=== PATIENT | male | born 1970 | race Caucasian/White ===

== ENCOUNTER 2016-12-20 15:02 | Outpatient (CLI) | payer OTHER ==
[2016-12-20 18:16] LABS: BASOPHILS # (AUTO) 0.1 10^3/uL (0.0-0.1); BASOPHILS % (AUTO) 0.9 %; EOSINOPHILS # (AUTO) 0.2 10^3/uL (0.0-0.7); HCT - HEMATOCRIT 49.4 % (42.0-52.0); HGB - HEMOGLOBIN 17.3 g/dL (14.0-18.0); LYMPHOCYTES % (AUTO) 23.8 %; MEAN CORPUSCULAR HEMOGLOBIN 30.8 pg (27.0-31.0); MEAN CORPUSCULAR HGB CONC 35.1 g/dL (32.0-36.0); MEAN CORPUSCULAR VOLUME 87.7 fL (80.0-94.0); MEAN PLATELET VOLUME 9.2 fL (7.4-11.4); MONOCYTES # (AUTO) 0.4 10^3/uL (0.0-1.0); MONOCYTES % (AUTO) 4.7 %; NEUTROPHILS # (AUTO) 5.7 10^3/uL (1.5-6.6); NEUTROPHILS % (AUTO) 68.6 %; RED BLOOD COUNT 5.63 10^6/uL (4.70-6.10); RED CELL DISTRIBUTION WIDTH 12.9 % (12.0-15.0); UNCORRECTED WHITE BLOOD COUNT 8.3 x10^3/uL; WHITE BLOOD COUNT 8.3 x10^3/uL (4.8-10.8)
[2016-12-20 19:18] LABS: ALBUMIN/GLOBULIN RATIO 2.1 (1.0-2.2); BILIRUBIN,TOTAL 0.7 mg/dL (0.2-1.0); CALCIUM 9.6 mg/dL (8.5-10.3); CREATININE 0.9 mg/dL (0.6-1.2); POTASSIUM 3.6 mmol/L (3.5-5.0); TOTAL PROTEIN 7.1 g/dL (6.7-8.2)
== END 2016-12-20 15:03 | disposition home or self-care (01) ==
LOC: LAB.F 15:02
PROVIDERS: ATTEND Internal Medicine
DX: F41.1 Generalized anxiety disorder (principal)
CPT/HCPCS: 36415; 80053; 82306; 85025

== ENCOUNTER 2017-11-30 08:11 | Outpatient (CLI) | payer OTHER ==
[2017-11-30 12:06] LABS: BASOPHILS # (AUTO) 0.1 10^3/uL (0.0-0.1); BASOPHILS % (AUTO) 1.1 %; EOSINOPHILS # (AUTO) 0.2 10^3/uL (0.0-0.7); EOSINOPHILS % (AUTO) 2.3 %; HGB - HEMOGLOBIN 17.6 g/dL (14.0-18.0); LYMPHOCYTES # (AUTO) 1.9 10^3/uL (1.5-3.5); LYMPHOCYTES % (AUTO) 24.8 %; MEAN CORPUSCULAR HEMOGLOBIN 30.5 pg (27.0-31.0); MEAN CORPUSCULAR HGB CONC 34.1 g/dL (32.0-36.0); MEAN CORPUSCULAR VOLUME 89.4 fL (80.0-94.0); MEAN PLATELET VOLUME 8.9 fL (7.4-11.4); MONOCYTES # (AUTO) 0.5 10^3/uL (0.0-1.0); MONOCYTES % (AUTO) 6.4 %; NEUTROPHILS # (AUTO) 4.9 10^3/uL (1.5-6.6); NEUTROPHILS % (AUTO) 65.4 %; PLT - PLATELET COUNT 222 10^3/uL (130-450); RED BLOOD COUNT 5.78 10^6/uL (4.70-6.10); RED CELL DISTRIBUTION WIDTH 13.2 % (12.0-15.0); WHITE BLOOD COUNT 7.5 x10^3/uL (4.8-10.8)
[2017-11-30 12:17] LABS: ALBUMIN 4.5 g/dL (3.2-5.5); ALBUMIN/GLOBULIN RATIO 1.7 (1.0-2.2); CALCIUM 9.3 mg/dL (8.5-10.3); CREATININE 0.8 mg/dL (0.6-1.2); TOTAL PROTEIN 7.1 g/dL (6.7-8.2)
== END 2017-11-30 08:12 | disposition home or self-care (01) ==
LOC: LAB.F 08:11
PROVIDERS: ATTEND Physician Assistant Medical
DX: I10 Essential (primary) hypertension (principal); Z79.899 Other long term (current) drug therapy; E55.9 Vitamin D deficiency, unspecified
CPT/HCPCS: 36415; 80053; 82306; 85025

== ENCOUNTER 2019-01-24 08:13 | Outpatient (CLI) | payer OTHER ==
[2019-01-24 10:10] LABS: BASOPHILS # (AUTO) 0.1 10^3/uL (0.0-0.1); EOSINOPHILS # (AUTO) 0.1 10^3/uL (0.0-0.7); EOSINOPHILS % (AUTO) 2.2 %; HGB - HEMOGLOBIN 17.1 g/dL (14.0-18.0); LYMPHOCYTES # (AUTO) 1.1 10^3/uL (1.5-3.5); LYMPHOCYTES % (AUTO) 22.5 %; MEAN CORPUSCULAR HEMOGLOBIN 30.6 pg (27.0-31.0); MEAN CORPUSCULAR HGB CONC 34.1 g/dL (32.0-36.0); MEAN CORPUSCULAR VOLUME 89.8 fL (80.0-94.0); MEAN PLATELET VOLUME 10.1 fL (7.4-11.4); MONOCYTES # (AUTO) 0.3 10^3/uL (0.0-1.0); MONOCYTES % (AUTO) 6.8 %; NEUTROPHILS # (AUTO) 3.4 10^3/uL (1.5-6.6); NEUTROPHILS % (AUTO) 67.3 %; PLT - PLATELET COUNT 231 10^3/uL (130-450); RED BLOOD COUNT 5.59 10^6/uL (4.70-6.10); RED CELL DISTRIBUTION WIDTH 12.4 % (12.0-15.0)
[2019-01-24 10:20] LABS: ALBUMIN 4.5 g/dL (3.2-5.5); ALBUMIN/GLOBULIN RATIO 1.8 (1.0-2.2); BILIRUBIN,TOTAL 0.9 mg/dL (0.2-1.0); CALCIUM 9.2 mg/dL (8.5-10.3); CREATININE 0.8 mg/dL (0.6-1.2)
== END 2019-01-24 08:14 | disposition home or self-care (01) ==
LOC: LAB.S 08:13
PROVIDERS: ATTEND Physician Assistant Medical
DX: I10 Essential (primary) hypertension (principal); Z51.81 Encounter for therapeutic drug level monitoring
CPT/HCPCS: 36415; 80053; 85025

== ENCOUNTER 2019-06-04 09:58 | Emergency (ER) | payer OTHER ==
[2019-06-04] MEDS ORDERED: ONDANSETRON ODT 4 MG TABLET TL STA (10:14)
[2019-06-04] MEDS ORDERED: MECLIZINE 12.5 MG TABLET PO STA (10:14)
--- NOTE | 2019-06-04 11:13 | ED Physician Documentation ---
History of Present Illness - Stated complaint Stated Complaint: DIZZINESS - Chief complaint Chief Complaint: Neuro - History obtained from History obtained from: Patient - History of Present Illness Timing: Today Pain level max: 0 Pain level now: 0 - Additonal information Additional information: 48-year-old male states that this morning he began to feel like the room was spinning around him. This has caused nausea. No focal neurological deficits. No trauma. No numbness or tingling. This is not happened before. No recent illnesses. Worse with movement and better with rest. No syncope or near syncope. No chest pain. Review of Systems Constitutional: denies: Fever, Chills Nose: denies: Rhinorrhea / runny nose, Congestion Throat: denies: Sore throat Cardiac: denies: Chest pain / pressure Respiratory: denies: Cough GI: denies: Nausea, Vomiting, Diarrhea Skin: denies: Rash Musculoskeletal: denies: Neck pain, Back pain Neurologic: denies: Headache PD PAST MEDICAL HISTORY - Past Medical History Past Medical History: Yes Psych: Anxiety - Past Surgical History Past Surgical History: No - Present Medications Home Medications: Ambulatory Orders Medication Instructions Recorded Confirmed Anti-Anxiety DAILY PRN 06/04/19 Eszopiclone [Lunesta] 1 mg PO QPM 06/04/19 06/04/19 Meclizine HCl 25 mg PO Q6H PRN #10 tablet 06/04/19 Ondansetron Odt [Zofran] 4 mg TL Q6H PRN #10 tablet 06/04/19 clonazePAM [Clonazepam] 0.5 mg PO QPM 06/04/19 06/04/19 - Allergies Allergies/Adverse Reactions: Allergies Allergy/AdvReac Type Severity Reaction Status Date / Time No Known Drug Allergies Allergy Verified 06/04/19 10:05 - Social History Does the pt smoke?: No Smoking Status: Never smoker Does the pt drink ETOH?: Yes Does the pt have substance abuse?: No - Immunizations Immunizations are current?: Yes PD ED PE NORMAL - Vitals Vital signs reviewed: Yes - General General: Alert and oriented X 3, No acute distress, Well developed/nourished - HEENT HEENT: Atraumatic, PERRL, EOMI, Ears normal, Moist mucous membranes, Pharynx benign, Other (Positive Hallpike to the left. Nystagmus to the left) - Neck Neck: Supple, no meningeal sign - Cardiac Cardiac: RRR, Strong equal pulses - Respiratory Respiratory: No respiratory distress, Clear bilaterally - Abdomen Abdomen: Soft, Non tender, Non distended - Derm Derm: Warm and dry, No rash - Neuro Neuro: Alert and oriented X 3, oxidized finish plater 2-12 intact, No motor deficit, No sensory deficit, Normal speech, Other (Normal gait. No pronator drift.) - Psych Psych: Normal mood, Normal affect Results - Vitals Vitals: Vital Signs - 24 hr 06/04/19 06/04/19 10:06 11:17 Temperature 36.3 C L Heart Rate 80 61 Respiratory 20 18 Rate Blood Pressure 144/95 H 129/89 H O2 Saturation 95 95 Oxygen O2 Source Room air - EKG (time done) 1008 Rate: Rate (enter#) (74) Rhythm: NSR [place]: Normal Intervals: Normal [place] QRS: Normal, LVH Ischemia: Normal ST segments PD MEDICAL DECISION MAKING - ED course Complexity details: considered differential, d/w patient ED course: Patient presents to the emergency department what appears to be BPPV. Put through the half somersault maneuver and symptoms resolved., Nontoxic. Afebrile. No focal neurological deficits. We will continue supportive care and have him follow-up with his doctor for further care. Patient counseled regarding signs and symptoms for which I believe and urgent re-evaluation would be necessary. Patient with good understanding of and agreement to plan and is comfortable going home at this time This document was made in part using voice recognition software. While efforts are made to proofread this document, sound alike and grammatical errors may occur. No evidence of stroke, tumor, aneurysm. Departure - Departure Disposition: Home, Self Care Clinical Impression: Vertigo Condition: Good Instructions: ED BPV Vertigo Follow-Up: Justine Jiménez PA-C [Primary Care Provider] - As Needed Prescriptions: Meclizine HCl 25 mg PO Q6H PRN #10 tablet PRN Reason: Vertigo Ondansetron Odt [Zofran] 4 mg TL Q6H PRN #10 tablet PRN Reason: Nausea / Vomiting Comments: You can use the medications as needed for vertigo. You can also try the half somersault maneuver or Iman maneuver at home. You can watch videos on YouTube about this. Discharge Date/Time: 06/04/19 11:23
[2019-06-04 11:17] VITALS: BP 129/89
== END 2019-06-04 11:23 | disposition home or self-care (01) ==
LOC: ED 09:58
DX: R42 Dizziness and giddiness (principal)
CPT/HCPCS: 93005; 99283; 99284; A9270; Q0162

== ENCOUNTER 2019-09-21 13:19 | Outpatient (CLI) | payer OTHER ==
[2019-09-21 17:51] LABS: BASOPHILS # (AUTO) 0.1 10^3/uL (0.0-0.1); BASOPHILS % (AUTO) 1.1 %; EOSINOPHILS # (AUTO) 0.2 10^3/uL (0.0-0.7); EOSINOPHILS % (AUTO) 2.3 %; HGB - HEMOGLOBIN 16.8 g/dL (14.0-18.0); LYMPHOCYTES # (AUTO) 2.3 10^3/uL (1.5-3.5); LYMPHOCYTES % (AUTO) 30.8 %; MEAN CORPUSCULAR HEMOGLOBIN 29.9 pg (27.0-31.0); MEAN CORPUSCULAR HGB CONC 33.9 g/dL (32.0-36.0); MEAN CORPUSCULAR VOLUME 88.4 fL (80.0-94.0); MEAN PLATELET VOLUME 10.7 fL (7.4-11.4); MONOCYTES # (AUTO) 0.6 10^3/uL (0.0-1.0); MONOCYTES % (AUTO) 7.6 %; NEUTROPHILS # (AUTO) 4.4 10^3/uL (1.5-6.6); NEUTROPHILS % (AUTO) 57.9 %; PLT - PLATELET COUNT 222 10^3/uL (130-450); RED BLOOD COUNT 5.61 10^6/uL (4.70-6.10); RED CELL DISTRIBUTION WIDTH 12.8 % (12.0-15.0); WHITE BLOOD COUNT 7.5 x10^3/uL (4.8-10.8)
[2019-09-21 18:14] LABS: ALBUMIN 4.4 g/dL (3.2-5.5); ALBUMIN/GLOBULIN RATIO 1.8 (1.0-2.2); BILIRUBIN,TOTAL 0.9 mg/dL (0.2-1.0); CALCIUM 9.3 mg/dL (8.5-10.3); CREATININE 0.9 mg/dL (0.6-1.2); TOTAL PROTEIN 6.9 g/dL (6.7-8.2)
== END 2019-09-21 23:59 | disposition home or self-care (01) ==
LOC: LAB.WCP 13:19
PROVIDERS: ATTEND Registered Nurse
DX: F42.9 Obsessive-compulsive disorder, unspecified (principal); I10 Essential (primary) hypertension; F41.1 Generalized anxiety disorder; G47.00 Insomnia, unspecified
CPT/HCPCS: 36415; 80053; 84403; 85025

== ENCOUNTER 2020-10-01 08:12 | Outpatient (CLI) | payer OTHER ==
[2020-10-01 14:17] LABS: BASOPHILS # (AUTO) 0.1 10^3/uL (0.0-0.1); BASOPHILS % (AUTO) 1.1 %; EOSINOPHILS # (AUTO) 0.1 10^3/uL (0.0-0.7); HCT - HEMATOCRIT 50.8 % (42.0-52.0); HGB - HEMOGLOBIN 17.4 g/dL (14.0-18.0); LYMPHOCYTES # (AUTO) 1.9 10^3/uL (1.5-3.5); LYMPHOCYTES % (AUTO) 28.2 %; MEAN CORPUSCULAR HEMOGLOBIN 30.4 pg (27.0-31.0); MEAN CORPUSCULAR HGB CONC 34.3 g/dL (32.0-36.0); MEAN CORPUSCULAR VOLUME 88.8 fL (80.0-94.0); MEAN PLATELET VOLUME 10.6 fL (7.4-11.4); MONOCYTES # (AUTO) 0.5 10^3/uL (0.0-1.0); MONOCYTES % (AUTO) 7.4 %; NEUTROPHILS # (AUTO) 4.1 10^3/uL (1.5-6.6); PLT - PLATELET COUNT 259 10^3/uL (130-450); RED BLOOD COUNT 5.72 10^6/uL (4.70-6.10); RED CELL DISTRIBUTION WIDTH 12.5 % (12.0-15.0); WHITE BLOOD COUNT 6.6 x10^3/uL (4.8-10.8)
[2020-10-01 14:41] LABS: ALBUMIN 4.8 g/dL (3.2-5.5); ALKALINE PHOSPHATASE 57 IU/L (42-121); ALT ALANINE AMINOTRANSFERASE 35 IU/L (10-60); AST ASPARTATE AMINOTRANSFERASE 22 IU/L (10-42); BILIRUBIN,TOTAL 1.1 mg/dL (0.2-1.0); BUN - BLOOD UREA NITROGEN 18 mg/dL (6-20); CALCIUM 9.3 mg/dL (8.5-10.3); CARBON DIOXIDE - CO2 23 mmol/L (21-32); CHLORIDE 104 mmol/L (101-111); CHOLESTEROL 211 mg/dL; GFR - MDRD 79 (>89); GLUCOSE 91 mg/dL (70-100); HDL CHOLESTEROL 30 mg/dL; LDL CHOLESTEROL,CALCULATED 151 mg/dL; POTASSIUM 4.1 mmol/L (3.5-5.0); SODIUM 138 mmol/L (135-145); TOTAL PROTEIN 7.2 g/dL (6.7-8.2); TRIGLYCERIDES 150 mg/dL; VLDL CHOLESTEROL 30 mg/dL
[2020-10-01 14:49] LABS: THYROID STIMULATING HORMONE 1.16 uIU/mL (0.34-5.60)
== END 2020-10-01 08:13 | disposition home or self-care (01) ==
LOC: LAB.S 08:12
PROVIDERS: ATTEND Registered Nurse
DX: G47.00 Insomnia, unspecified (principal); F41.1 Generalized anxiety disorder; I10 Essential (primary) hypertension
CPT/HCPCS: 36415; 80053; 80061; 83721; 84153; 84443; 85025

== ENCOUNTER 2021-10-07 07:54 | Outpatient (CLI) | payer OTHER ==
[2021-10-07 14:12] LABS: BASOPHILS # (AUTO) 0.1 10^3/uL (0.0-0.1); BASOPHILS % (AUTO) 0.8 %; EOSINOPHILS # (AUTO) 0.1 10^3/uL (0.0-0.7); EOSINOPHILS % (AUTO) 1.5 %; HCT - HEMATOCRIT 50.5 % (42.0-52.0); LYMPHOCYTES # (AUTO) 1.7 10^3/uL (1.5-3.5); LYMPHOCYTES % (AUTO) 23.5 %; MEAN CORPUSCULAR HEMOGLOBIN 30.2 pg (27.0-31.0); MEAN CORPUSCULAR HGB CONC 33.7 g/dL (32.0-36.0); MEAN CORPUSCULAR VOLUME 89.9 fL (80.0-94.0); MEAN PLATELET VOLUME 10.6 fL (7.4-11.4); MONOCYTES # (AUTO) 0.5 10^3/uL (0.0-1.0); MONOCYTES % (AUTO) 7.1 %; NEUTROPHILS # (AUTO) 4.8 10^3/uL (1.5-6.6); PLT - PLATELET COUNT 235 10^3/uL (130-450); RED BLOOD COUNT 5.62 10^6/uL (4.70-6.10); RED CELL DISTRIBUTION WIDTH 12.9 % (12.0-15.0); WHITE BLOOD COUNT 7.2 x10^3/uL (4.8-10.8)
[2021-10-07 14:58] LABS: THYROID STIMULATING HORMONE 1.35 uIU/mL (0.34-5.60)
[2021-10-07 15:28] LABS: ALBUMIN 4.6 g/dL (3.2-5.5); ALBUMIN/GLOBULIN RATIO 2.3 (1.0-2.2); ALKALINE PHOSPHATASE 52 IU/L (42-121); ALT ALANINE AMINOTRANSFERASE 26 IU/L (10-60); AST ASPARTATE AMINOTRANSFERASE 20 IU/L (10-42); BUN - BLOOD UREA NITROGEN 18 mg/dL (6-20); CALCIUM 9.4 mg/dL (8.5-10.3); CARBON DIOXIDE - CO2 24 mmol/L (21-32); CHLORIDE 101 mmol/L (101-111); CHOL/HDL RATIO 5.1 (<5.0); CHOLESTEROL 200 mg/dL; CREATININE 0.9 mg/dL (0.6-1.2); GFR - MDRD 89 (>89); GLUCOSE 85 mg/dL (70-100); HDL CHOLESTEROL 39 mg/dL; LDL CHOLESTEROL,CALCULATED 136 mg/dL; LDL/HDL RATIO 3.5 (<3.6); SODIUM 136 mmol/L (135-145); TOTAL PROTEIN 6.6 g/dL (6.7-8.2); TRIGLYCERIDES 126 mg/dL; VLDL CHOLESTEROL 25 mg/dL
== END 2021-10-07 07:55 | disposition home or self-care (01) ==
LOC: LAB.S 07:54
PROVIDERS: ATTEND Registered Nurse
DX: I10 Essential (primary) hypertension (principal); Z51.81 Encounter for therapeutic drug level monitoring; Z13.220 Encounter for screening for lipoid disorders; Z12.5 Encounter for screening for malignant neoplasm of prostate; Z79.899 Other long term (current) drug therapy
CPT/HCPCS: 36415; 80053; 80061; 83721; 84153; 84443; 85025

== ENCOUNTER 2022-09-20 07:23 | Outpatient (CLI) | payer OTHER ==
[2022-09-20 14:38] LABS: BASOPHILS # (AUTO) 0.1 10^3/uL (0.0-0.1); BASOPHILS % (AUTO) 1.1 %; EOSINOPHILS # (AUTO) 0.1 10^3/uL (0.0-0.7); EOSINOPHILS % (AUTO) 1.2 %; HCT - HEMATOCRIT 52.9 % (42.0-52.0); HGB - HEMOGLOBIN 17.4 g/dL (14.0-18.0); LYMPHOCYTES # (AUTO) 1.7 10^3/uL (1.5-3.5); LYMPHOCYTES % (AUTO) 26.4 %; MEAN CORPUSCULAR HEMOGLOBIN 30.7 pg (27.0-31.0); MEAN CORPUSCULAR HGB CONC 32.9 g/dL (32.0-36.0); MEAN CORPUSCULAR VOLUME 93.5 fL (80.0-94.0); MEAN PLATELET VOLUME 10.5 fL (7.4-11.4); MONOCYTES # (AUTO) 0.5 10^3/uL (0.0-1.0); MONOCYTES % (AUTO) 8.2 %; NEUTROPHILS # (AUTO) 4.1 10^3/uL (1.5-6.6); NEUTROPHILS % (AUTO) 62.8 %; PLT - PLATELET COUNT 230 10^3/uL (130-450); RED BLOOD COUNT 5.66 10^6/uL (4.70-6.10); RED CELL DISTRIBUTION WIDTH 12.9 % (12.0-15.0); WHITE BLOOD COUNT 6.5 x10^3/uL (4.8-10.8)
[2022-09-20 14:59] LABS: ALBUMIN 4.6 g/dL (3.2-5.5); ALBUMIN/GLOBULIN RATIO 1.8 (1.0-2.2); ALKALINE PHOSPHATASE 49 IU/L (42-121); ALT ALANINE AMINOTRANSFERASE 22 IU/L (10-60); AST ASPARTATE AMINOTRANSFERASE 20 IU/L (10-42); BILIRUBIN,TOTAL 1.1 mg/dL (0.2-1.0); BUN - BLOOD UREA NITROGEN 19 mg/dL (6-20); CALCIUM 9.4 mg/dL (8.5-10.3); CARBON DIOXIDE - CO2 27 mmol/L (21-32); CHLORIDE 105 mmol/L (101-111); CHOL/HDL RATIO 4.8 (<5.0); CHOLESTEROL 188 mg/dL; CREATININE 0.9 mg/dL (0.6-1.2); GFR - MDRD 89 (>89); GLUCOSE 92 mg/dL (70-100); HDL CHOLESTEROL 39 mg/dL; LDL CHOLESTEROL,CALCULATED 124 mg/dL; LDL/HDL RATIO 3.2 (<3.6); POTASSIUM 4.2 mmol/L (3.5-5.0); SODIUM 138 mmol/L (135-145); TOTAL PROTEIN 7.1 g/dL (6.7-8.2); TRIGLYCERIDES 127 mg/dL; VLDL CHOLESTEROL 25 mg/dL
[2022-09-20 15:11] LABS: THYROID STIMULATING HORMONE 0.91 uIU/mL (0.34-5.60)
== END 2022-09-20 07:24 | disposition home or self-care (01) ==
LOC: LAB.S 07:23
PROVIDERS: ATTEND Registered Nurse
DX: I10 Essential (primary) hypertension (principal); Z12.5 Encounter for screening for malignant neoplasm of prostate; Z13.9 Encounter for screening, unspecified
CPT/HCPCS: 36415; 80053; 80061; 83721; 84153; 84443; 85025

== ENCOUNTER 2022-12-23 16:23 | Outpatient (CLI) | payer OTHER ==
--- NOTE | 2022-12-24 13:27 | Ultrasound Report ---
PROCEDURE: Pelvic Limited or F/U INDICATIONS: LEFT GROIN PAIN TECHNIQUE: Real-time transabdominal scanning was performed of the left inguinal region, with image documentation . COMPARISON: None. FINDINGS: Left inguinal hernia measures 2.6 x 1.7 cm, contains fat without bowel involvement. IMPRESSION: Fat-containing left inguinal hernia Reviewed by: Jean Marie Maddox MD on 12/24/2022 12:26 PM [facility] Approved by: Jean Marie Maddox MD on 12/24/2022 12:26 PM [facility]DT Station ID: [id number]
== END 2022-12-23 16:24 | disposition home or self-care (01) ==
LOC: DI 16:23
PROVIDERS: ATTEND Registered Nurse
DX: K40.90 Unilateral inguinal hernia, without obstruction or gangrene, not specified as recurrent (principal)

== ENCOUNTER 2023-09-16 07:30 | Outpatient (CLI) | payer OTHER ==
[2023-09-16 15:13] LABS: BASOPHILS # (AUTO) 0.1 10^3/uL (0.0-0.1); BASOPHILS % (AUTO) 1.3 %; EOSINOPHILS # (AUTO) 0.2 10^3/uL (0.0-0.7); EOSINOPHILS % (AUTO) 2.6 %; HCT - HEMATOCRIT 50.2 % (42.0-52.0); HGB - HEMOGLOBIN 16.6 g/dL (14.0-18.0); LYMPHOCYTES # (AUTO) 1.4 10^3/uL (1.5-3.5); LYMPHOCYTES % (AUTO) 22.9 %; MEAN CORPUSCULAR HGB CONC 33.1 g/dL (32.0-36.0); MEAN CORPUSCULAR VOLUME 93.7 fL (80.0-94.0); MEAN PLATELET VOLUME 10.5 fL (7.4-11.4); MONOCYTES # (AUTO) 0.4 10^3/uL (0.0-1.0); MONOCYTES % (AUTO) 6.1 %; NEUTROPHILS # (AUTO) 4.2 10^3/uL (1.5-6.6); NEUTROPHILS % (AUTO) 66.9 %; PLT - PLATELET COUNT 223 10^3/uL (130-450); RED BLOOD COUNT 5.36 10^6/uL (4.70-6.10); WHITE BLOOD COUNT 6.2 x10^3/uL (4.8-10.8)
[2023-09-16 15:52] LABS: ALBUMIN 4.7 g/dL (3.2-5.5); ALBUMIN/GLOBULIN RATIO 2.4 (1.0-2.2); ALKALINE PHOSPHATASE 65 IU/L (42-121); ALT ALANINE AMINOTRANSFERASE 22 IU/L (10-60); AST ASPARTATE AMINOTRANSFERASE 20 IU/L (10-42); BILIRUBIN,TOTAL 1.2 mg/dL (0.2-1.0); BUN - BLOOD UREA NITROGEN 19 mg/dL (6-20); CARBON DIOXIDE - CO2 28 mmol/L (21-32); CHLORIDE 104 mmol/L (101-111); CHOL/HDL RATIO 3.1 (<5.0); CHOLESTEROL 110 mg/dL; GFR - MDRD 78 (>89); GLUCOSE 93 mg/dL (74-104); HDL CHOLESTEROL 35 mg/dL; LDL CHOLESTEROL,CALCULATED 59 mg/dL; LDL/HDL RATIO 1.7 (<3.6); POTASSIUM 4.4 mmol/L (3.5-4.5); SODIUM 138 mmol/L (135-145); TOTAL PROTEIN 6.7 g/dL (6.4-8.9); TRIGLYCERIDES 82 mg/dL (48-352); VLDL CHOLESTEROL 16 mg/dL
[2023-09-16 15:53] LABS: THYROID STIMULATING HORMONE 0.83 uIU/mL (0.34-5.60)
== END 2023-09-16 07:31 | disposition home or self-care (01) ==
LOC: LAB.S 07:30
PROVIDERS: ATTEND Registered Nurse
DX: Z12.5 Encounter for screening for malignant neoplasm of prostate (principal); Z13.228 Encounter for screening for other metabolic disorders; Z13.220 Encounter for screening for lipoid disorders; Z13.29 Encounter for screening for other suspected endocrine disorder; Z13.0 Encounter for screening for diseases of the blood and blood-forming organs and certain disorders involving the immune mechanism
CPT/HCPCS: 36415; 80053; 80061; 83721; 84153; 84443; 85025